=== PATIENT | male | born 1985 | race African-American/Black ===

== ENCOUNTER 2018-02-22 11:42 | Emergency (ER) | payer SELFPAY ==
[2018-02-22 14:02] LABS: Urine Blood NEGATIVE (NEG); Urine Glucose NEGATIVE (NEG); Urine Protein NEGATIVE (NEG); Urine Specific Gravity 1.015 (1.005-1.030); Urine pH 6.5 (5.0-7.0)
[2018-02-22] MEDS ORDERED: CEFTRIAXONE 250 MG/VIAL ONE (14:09)
[2018-02-22] MEDS ORDERED: AZITHROMYCIN 250 MG TAB ONE (14:09)
[2018-02-22] MEDS ORDERED: WATER FOR INJ,STERILE 10 ML ONE (14:09)
--- NOTE | 2018-02-22 14:11 | ER ---
Nurse's Notes [facility] Name: Tanisha Hahn Age: 33 yrs Sex: Male : 1985 Arrival Date: 02/22/2018 Time: 11:45 Bed 18 Private MD: None, None Diagnosis: Suspected STD;Flu like illness Presentation: 02/22 11:49 Presenting complaint: Patient states: pt c/o peeing blood since for two months now, sg decided to find out why, reports sore throat that hurts on the left side most, reports having fever intermittent, would like to get tested for everthing. Transition of care: patient was not received from another setting of care. Onset of symptoms was February 22, 2018. Risk Assessment: Do you want to hurt yourself or someone else? Patient reports no desire to harm self or others. Initial Sepsis Screen: Does the patient meet any 2 criteria? No. Patient's initial sepsis screen is negative. Does the patient have a suspected source of infection? No. Patient's initial sepsis screen is negative. Care prior to arrival: None. 11:49 Method Of Arrival: Ambulatory 11:49 Acuity: JONO 3 sg Historical: - Allergies: 11:51 No Known Allergies; sg - Home Meds: 11:51 None [Active]; sg - PMHx: 11:51 None; sg - PSHx: 11:51 Appendectomy; sg - Immunization history:: Adult Immunizations not up to date. - Social history:: Smoking status: Patient uses tobacco products, smokes one-half pack cigarettes per day. - Ebola Screening: : Patient negative for fever greater than or equal to 101.5 degrees Fahrenheit, and additional compatible Ebola Virus Disease symptoms Patient denies exposure to infectious person Patient denies travel to an Ebola-affected area in the 21 days before illness onset No symptoms or risks identified at this time. Screenin:13 Abuse screen: Denies threats or abuse. Denies injuries from another. Nutritional jl7 screening: No deficits noted. Tuberculosis screening: No symptoms or risk factors identified. Fall Risk None identified. Assessment: 13:13 General: Appears in no apparent distress. uncomfortable, Behavior is calm, cooperative, jl7 appropriate for age. Pain: Complains of pain in sore throat Pain does not radiate. Pain currently is 8 out of 10 on a pain scale. Neuro: Level of Consciousness is awake, alert, obeys commands, Oriented to person, place, time, situation. Cardiovascular: Heart tones S1 S2 present Patient's skin is warm and dry. Respiratory: Airway is patent Respiratory effort is even, unlabored, Respiratory pattern is regular, symmetrical, Breath sounds are clear bilaterally. GI: No signs and/or symptoms were reported involving the gastrointestinal system. : No signs and/or symptoms were reported regarding the genitourinary system. EENT: Throat is clear is reddened. Derm: Skin is pink, warm \T\ dry. Musculoskeletal: No signs and/or symptoms reported regarding the musculoskeletal system. 14:15 Reassessment: Patient appears in no apparent distress at this time. No changes from jl7 previously documented assessment. Patient and/or family updated on plan of care and expected duration. Pain level reassessed. Patient is alert, oriented x 3, equal unlabored respirations, skin warm/dry/pink. Vital Signs: 11:50 BP 148 / 103; Pulse 87; Resp 17; Temp 98.3; Pulse Ox 98% on R/A; Height 5 ft. 4 in. sg (162.56 cm); Pain 8/10; 14:37 BP 145 / 89; Pulse 85; Resp 16 S; Pulse Ox 99% on R/A; jl7 ED Course: 11:45 Patient arrived in ED. mr 11:46 None, None is Private Physician. mr 11:50 Triage completed. sg 11:52 Arm band placed on. sg 12:42 Horace Stark MD is Attending Physician. ps1 12:45 Urine collected: Strep swab sent to lab. jl7 12:48 Grady Kate RN is Primary Nurse. jl7 13:13 Patient has correct armband on for positive identification. Placed in gown. Bed in low jl7 position. Call light in reach. Side rails up X 1. Pulse ox on. NIBP on. Warm blanket given. 14:15 No provider procedures requiring assistance completed. jl7 14:36 Throat Culture Sent. jl7 14:38 Patient did not have IV access during this emergency room visit. jl7 Administered Medications: 14:08 Drug: Rocephin (cefTRIAXone) 250 mg Route: IM; Site: right deltoid; jl7 14:36 Follow up: Response: No adverse reaction jl7 14:09 Drug: AZITHromycin 1 grams Route: PO; jl7 14:36 Follow up: Response: No adverse reaction jl7 Outcome: 14:10 Discharge ordered by . ps1 14:38 Discharged to home ambulatory. jl7 14:38 Condition: stable 14:38 Discharge instructions given to patient, Instructed on discharge instructions, follow up and referral plans. safe sex practices, Demonstrated understanding of instructions, follow-up care. 14:38 Patient left the ED. jl7 Signatures: Thierno Bucio RN RN Jayna Diego Jahala, RN RN jlHorace Ware MD MD ps1 Corrections: (The following items were deleted from the chart) 14:38 14:15 Patient did not have IV access during this emergency room visit. jl7 jl7
--- NOTE | 2018-02-22 14:11 | EDPHYS ---
Physician Documentation [facility] Name: Tanisha Hahn Age: 33 yrs Sex: Male : 1985 Arrival Date: 02/22/2018 Time: 11:45 Bed 18 Private MD: None, None ED Physician Horace Stark HPI: 02/22 14:03 This 33 yrs old Black Male presents to ER via Ambulatory with complaints of Sore ps1 Throat, Urinary Problem. 14:03 patient with concern for STD and flu like symptoms presenting for evaluation. Patient ps1 states that he has had SILVA, fever, chills, sore throat, body aches for 3 days. Additionally he states that he is sexually active and started having dysuria and hematuria. Which has since resolved. . Historical: - Allergies: 11:51 No Known Allergies; sg - Home Meds: 11:51 None [Active]; sg - PMHx: 11:51 None; sg - PSHx: 11:51 Appendectomy; sg - Immunization history:: Adult Immunizations not up to date. - Social history:: Smoking status: Patient uses tobacco products, smokes one-half pack cigarettes per day. - Ebola Screening: : Patient negative for fever greater than or equal to 101.5 degrees Fahrenheit, and additional compatible Ebola Virus Disease symptoms Patient denies exposure to infectious person Patient denies travel to an Ebola-affected area in the 21 days before illness onset No symptoms or risks identified at this time. ROS: 14:03 Eyes: Negative for injury, pain, redness, and discharge, ENT: Negative for injury, ps1 pain, and discharge, Cardiovascular: Negative for chest pain, palpitations, and edema, Respiratory: Negative for shortness of breath, cough, wheezing, and pleuritic chest pain, Abdomen/GI: Negative for abdominal pain, nausea, vomiting, diarrhea, and constipation, MS/Extremity: Negative for injury and deformity, Skin: Negative for injury, rash, and discoloration, Neuro: Negative for headache, weakness, numbness, tingling, and seizure, Psych: Negative for depression, anxiety, suicide ideation, homicidal ideation, and hallucinations. 14:03 Constitutional: Positive for body aches, chills, fatigue, fever. 14:03 : Positive for urinary symptoms, hematuria, burning with urination. Exam: 14:03 Constitutional: This is a well developed, well nourished patient who is awake, alert, ps1 and in no acute distress. Head/Face: Normocephalic, atraumatic. Eyes: Pupils equal round and reactive to light, extra-ocular motions intact. Lids and lashes normal. Conjunctiva and sclera are non-icteric and not injected. Chest/axilla: Normal chest wall appearance and motion. Nontender with no deformity. No lesions are appreciated. Cardiovascular: Regular rate and rhythm. No gallops, murmurs, or rubs. Normal PMI, no JVD. No pulse deficits. Respiratory: Lungs have equal breath sounds bilaterally, clear to auscultation and percussion. No rales, rhonchi or wheezes noted. No increased work of breathing, no retractions or nasal flaring. Abdomen/GI: Soft, non-tender, with normal bowel sounds. No distension or tympany. No guarding or rebound. No evidence of tenderness throughout. Male : Normal genitalia with no discharge or lesions. Vital Signs: 11:50 BP 148 / 103; Pulse 87; Resp 17; Temp 98.3; Pulse Ox 98% on R/A; Height 5 ft. 4 in. sg (162.56 cm); Pain 8/10; 14:37 BP 145 / 89; Pulse 85; Resp 16 S; Pulse Ox 99% on R/A; jl7 MDM: 14:10 Patient medically screened. ps1 14:10 Data reviewed: vital signs, nurses notes. [facility] 02/22 11:54 Order name: Strep; Complete Time: 12:55 02/22 14:11 Interpretation: Abnormal. [facility] 02/22 12:22 Order name: Throat Culture [facility] 02/22 12:27 Order name: Urine Dipstick--Ancillary (enter results); Complete Time: 14:11 sg Administered Medications: 14:08 Drug: Rocephin (cefTRIAXone) 250 mg Route: IM; Site: right deltoid; jl7 14:36 Follow up: Response: No adverse reaction jl7 14:09 Drug: AZITHromycin 1 grams Route: PO; jl7 14:36 Follow up: Response: No adverse reaction jl7 Disposition: 02/22/18 14:10 Discharged to Home. Impression: Suspected STD, Flu like illness. - Condition is Stable. - Discharge Instructions: Sexually Transmitted Disease, [id number]. - Medication Reconciliation Form, Thank You Letter, Antibiotic Education, Prescription Opioid Use form. - Follow up: Private Physician; When: As needed; Reason: Recheck today's complaints, Continuance of care, Re-evaluation by your physician. Follow up: Emergency Department; When: As needed; Reason: Fever > 102 F, Worsening of condition. - Problem is new. - Symptoms are unchanged. Signatures: Dispatcher [employer] EDMS Thierno Bucio RN RN sg Grady Kate RN RN jl7 Horace Stark MD MD ps1 Corrections: (The following items were deleted from the chart) 14:38 14:10 02/22/2018 14:10 Discharged to Home. Impression: Suspected STD; Flu like illness. jl7 Condition is Stable. Forms are Medication Reconciliation Form, Thank You Letter, Antibiotic Education, Prescription Opioid Use. Follow up: Private Physician; When: As needed; Reason: Recheck today's complaints, Continuance of care, Re-evaluation by your physician. Follow up: Emergency Department; When: As needed; Reason: Fever > 102 F, Worsening of condition. Problem is new. Symptoms are unchanged. ps1
[2018-02-25 11:46] LABS: C.trachomatis RNA,TMA Not Detected (Not Detected)
== END 2018-02-22 14:38 | disposition home or self-care (01) ==
LOC: ER 11:42
DX: J11.1 Influenza due to unidentified influenza virus with other respiratory manifestations (principal); Z20.2 Contact with and (suspected) exposure to infections with a predominantly sexual mode of transmission; F17.210 Nicotine dependence, cigarettes, uncomplicated
CPT/HCPCS: 81003; 87070; 87081; 87490; 87590; 96372; 99283; J0696

== ENCOUNTER 2018-02-25 09:18 | Emergency (ER) | payer SELFPAY ==
[2018-02-25] MEDS ORDERED: PANTOPRAZOLE 40 MG INJ ONE (10:13)
[2018-02-25] MEDS ORDERED: MEPERIDINE HCL 25 MG/0.5 ML ONE (10:50)
[2018-02-25] MEDS ORDERED: ONDANSETRON 4 MG/2 ML VIAL ONE ×2 (10:50→11:14)
[2018-02-25] MEDS ORDERED: DEXAMETHASONE 10 MG/ML VIAL ONE (11:13)
[2018-02-25] MEDS ORDERED: MORPHINE 4 MG/ML SYR ONE (11:14)
[2018-02-25] MEDS ORDERED: KETOROLAC 30 MG/ML INJ ONE (11:14)
[2018-02-25 11:30] LABS: Albumin 3.6 g/dL (3.4-5.0); Bilirubin Total 0.6 mg/dL (0.2-1.0); Potassium 3.9 mmol/L (3.5-5.1); Protein, Total 8.5 g/dL (6.4-8.2)
--- NOTE | 2018-02-25 12:14 | RAD REPORT ---
EXAM DESCRIPTION: CT - Soft Tissue Neck W/Contr - 02/25/2018 11:52 am CLINICAL HISTORY: Sore throat, difficulty talking, pain and fever TECHNIQUE: During dynamic enhancement using 100 milliliters nonionic IV contrast, axial 5 millimeter thick images of the neck were obtained. All CT scans are performed using dose optimization technique as appropriate and may include automated exposure control or mA/KV adjustment according to patient size. FINDINGS: Intracranial portion the examination is unremarkable. No globe or orbital content abnormal ity seen. Mastoid air cells and paranasal sinuses are clear. No vascular abnormality identified. The parotid, submandibular and thyroid gland tissues are unremarkable. No nasopharyngeal mass. There is a mild increased enhancement pattern along the mucosal surface. No r etropharyngeal abscess identified. Epiglottis is normal. No significant soft palate abnormality ident ifiable. No vocal cord abnormality. Minimal asymmetry or nodularity along the left side at the tongue base. This continues into the inferior margin of the left tonsil. Both tonsils are enlarged and show heterogeneous enhancement. There are several small punctate rounded low-density areas in the right t onsil. At the superior margin of the left tonsil with the soft palate there is a 14 millimeter rounde d area of diminished attenuation. In the midportion of the left tonsil there is an additional low-den sity area 12 mm in size. Additional very small rounded hypodense areas are present throughout the lef t tonsil. Bilateral enlarged enhancing reactive cervical lymph nodes are present. Largest is 19 mm along the po sterior margin of the left submandibular gland. No necrotic or abscessed lymph node. IMPRESSION: Bilateral tonsillitis findings with evidence for sixth peritonsillar abscess in the supe rior and midportion of the left tonsil. Both tonsils show numerous small rounded hypoechoic areas elizabet t could be additional small microabscesses. No epiglottis involvement. Vocal cords are unremarkable. Bilateral reactive cervical lymphadenopathy.
[2018-02-25] MEDS ORDERED: PIPER/TAZO/NS 3.375gm 3.375 GM/100 ML BAG ONE (13:05)
--- NOTE | 2018-02-25 13:41 | ER ---
Nurse's Notes [facility] Name: Tanisha Hahn Age: 33 yrs Sex: Male : 1985 Arrival Date: 02/25/2018 Time: 09:21 Bed 12 Private MD: Diagnosis: Peritonsillar abscess Presentation: 02/25 09:41 Presenting complaint: Patient states: sore throat, feels dizzy, can't talk, pain X 1 iw week, headache behind left eye, +fever. Transition of care: patient was not received from another setting of care. Onset of symptoms was February 22, 2018. Risk Assessment: Do you want to hurt yourself or someone else? Patient reports no desire to harm self or others. Initial Sepsis Screen: Does the patient meet any 2 criteria? No. Patient's initial sepsis screen is negative. Does the patient have a suspected source of infection? No. Patient's initial sepsis screen is negative. Care prior to arrival: None. 09:41 Method Of Arrival: Ambulatory iw 09:41 Acuity: JONO 3 iw Triage Assessment: 13:46 General: Appears in no apparent distress. Behavior is calm, cooperative. iw 13:47 Pain: Denies pain. iw Historical: - Allergies: 09:43 No Known Allergies; iw - Home Meds: 09:43 None [Active]; iw - PMHx: 09:43 None; iw - PSHx: 09:43 Appendectomy; iw - Immunization history:: Adult Immunizations up to date. - Social history:: Smoking status: Patient uses tobacco products, smokes two packs cigarettes per day. - Ebola Screening: : Patient negative for fever greater than or equal to 101.5 degrees Fahrenheit, and additional compatible Ebola Virus Disease symptoms Patient denies exposure to infectious person Patient denies travel to an Ebola-affected area in the 21 days before illness onset No symptoms or risks identified at this time. Screenin:07 Abuse screen: Denies threats or abuse. Denies injuries from another. Nutritional iw screening: Difficulty chewing/swallowing? Yes. Tuberculosis screening: No symptoms or risk factors identified. Fall Risk IV access (20 points). Assessment: 13:07 Reassessment: Patient appears in no apparent distress at this time. Patient and/or iw family updated on plan of care and expected duration. Pain level reassessed. Patient is alert, oriented x 3, equal unlabored respirations, skin warm/dry/pink. Patient denies pain at this time. Patient states symptoms have improved. Vital Signs: 09:44 BP 132 / 81; Pulse 98; Resp 16; Temp 99.2; Pulse Ox 100% ; Weight 72.57 kg; Height 5 iw ft. 4 in. (162.56 cm); Pain 10/10; 13:07 BP 104 / 62; Pulse 75; Resp 18 S; Temp 98.2(O); Pulse Ox 98% on R/A; Pain 0/10; iw 09:44 Body Mass Index 27.46 (72.57 kg, 162.56 cm) iw ED Course: 09:21 Patient arrived in ED. rg4 09:43 Triage completed. iw 09:44 Arm band placed on. iw 10:00 Patient has correct armband on for positive identification. iw 10:17 Ronaldo Shaikh PA is PHCP. [facility] 10:17 Dennis Sesay MD is Attending Physician. [facility] 10:46 Moon Crabtree RN is Primary Nurse. iw 10:47 Radiology exam delayed due to lab results not completed at this time. (BUN/Creatinine). vm2 10:55 Initial lab(s) drawn, by me, sent to lab. Inserted saline lock: 20 gauge in right sv antecubital area, using aseptic technique. Blood collected. Flushed right antecubital with 5 ml normal saline. 10:56 Radiology exam delayed due to lab results not completed at this time. (BUN/Creatinine). vm2 10:56 Throat Culture Sent. iw 11:30 initiated a transfer with Reena at the [facility]. eb 11:50 Patient moved to [place] via wheelchair. em2 11:52 CT completed. Patient tolerated procedure well. Patient moved back from HI. em2 11:53 CT Soft Tissue Neck W/contr In Process Unspecified. EDMS 13:20 pt declined at [facility] due to being at capacity. eb 13:25 initiated transfer with Charleen from the [facility]. eb 13:29 connected the ENT bail bonding agent from [facility] for patient transfer center. eb 13:32 administrative approval given by Charleen Steele RN Transfer Coord/ Pt going to the ER/ Dr. jazmyn Mcguire accepted the patient in transfer/ Report to be called to [phone]. 13:47 No provider procedures requiring assistance completed. Patient did not have IV access iw during this emergency room visit. Administered Medications: 11:08 Drug: Zofran 4 mg Route: IVP; Site: right antecubital; iw 11:10 Drug: morphine 2 mg Route: IVP; Site: right antecubital; iw 11:10 Drug: Ketorolac 30 mg Route: IVP; Site: right antecubital; iw 11:12 Drug: Decadron - Dexamethasone 10 mg Route: IVP; Site: right antecubital; iw 13:06 Drug: Zosyn 3.375 grams Route: IVPB; Infused Over: 60 mins; Site: right antecubital; iw Outcome: 13:39 ER care complete, transfer ordered by . bela 13:46 Transferred by ground EMS to [facility], Transfer form completed. X-rays sent iw w/ patient. Note: report given to MINGO Green 13:46 Condition: good 13:46 Instructed on the need for admit. 14:18 Patient left the ED. iw Signatures: Dispatcher [employer] EDMS Dayan Patel RN MINGO Ronaldo Shaikh PA PA jmm Williams, Irene, RN RN Sean Jarrett Rubi rg4 McGuire, Victoria vm2 Botello, Elizabeth Corrections: (The following items were deleted from the chart) 10:46 09:41 Acuity: JONO 4 [facility] 13:30 13:29 initiated transfer with Charleen from the [facility] 13:36 13:34 administrative approval given by Charleen Steele RN Transfer Coord/ Pt going to the ER/ Dr. Mcguire accepted the patient in transfer/ Report to be called to [phone]
--- NOTE | 2018-02-25 13:41 | EDPHYS ---
Physician Documentation [facility] Name: Tanisha Hahn Age: 33 yrs Sex: Male : 1985 Arrival Date: 02/25/2018 Time: 09:21 Bed 12 Private MD: ED Physician Dennis Sesay HPI: 02/25 10:47 This 33 yrs old Black Male presents to ER via Ambulatory with complaints of Throat jmm Swelling, Fever. 10:47 The patient presents with sore throat. Onset: The symptoms/episode began/occurred jmm gradually, 1 week(s) ago. Associated signs and symptoms: Pertinent positives: chills, fever, headache. This is a 33 year old male with no chronic medical conditions that presents to the ED with sore throat, SILVA, fever beginning 1 week ago. Patient was evaluated 3 days ago with concerns for an STD. Patient states administered antibiotics have not helped alleviate symptoms. . Historical: - Allergies: 09:43 No Known Allergies; iw - Home Meds: 09:43 None [Active]; iw - PMHx: 09:43 None; iw - PSHx: 09:43 Appendectomy; iw - Immunization history:: Adult Immunizations up to date. - Social history:: Smoking status: Patient uses tobacco products, smokes two packs cigarettes per day. - Ebola Screening: : Patient negative for fever greater than or equal to 101.5 degrees Fahrenheit, and additional compatible Ebola Virus Disease symptoms Patient denies exposure to infectious person Patient denies travel to an Ebola-affected area in the 21 days before illness onset No symptoms or risks identified at this time. ROS: 10:47 Eyes: Negative for injury, pain, redness, and discharge. jmm 10:47 Neck: Negative for injury, pain, and swelling, Cardiovascular: Negative for chest pain, palpitations, and edema, Respiratory: Negative for shortness of breath, cough, wheezing, and pleuritic chest pain, Abdomen/GI: Negative for abdominal pain, nausea, vomiting, diarrhea, and constipation. 10:47 Constitutional: Positive for body aches, chills, fever. 10:47 ENT: Positive for sore throat. 10:47 Neuro: Positive for headache. 10:47 All other systems are negative. Exam: 10:47 Constitutional: This is a well developed, well nourished patient who is awake, alert, jmm and in no acute distress. Head/Face: atraumatic. 10:47 Neck: Trachea midline, Supple Chest/axilla: Normal chest wall appearance and motion. Cardiovascular: Regular rate and rhythm. No edema appreciated Respiratory: Normal respirations, no respiratory distress appreciated Abdomen/GI: Non distended, soft Back: Normal ROM Skin: General appearance color normal MS/ Extremity: Moves all extremities, no obvious deformities appreciated, no edema noted to the lower extremities Neuro: Awake and alert, normal gait 10:47 ENT: Posterior pharynx: swelling, erythema. 10:47 Psych: Behavior/mood is pleasant, cooperative, anxious. Vital Signs: 09:44 BP 132 / 81; Pulse 98; Resp 16; Temp 99.2; Pulse Ox 100% ; Weight 72.57 kg; Height 5 iw ft. 4 in. (162.56 cm); Pain 10/10; 13:07 BP 104 / 62; Pulse 75; Resp 18 S; Temp 98.2(O); Pulse Ox 98% on R/A; Pain 0/10; iw 09:44 Body Mass Index 27.46 (72.57 kg, 162.56 cm) iw MDM: 10:34 Patient medically screened. [facility] 13:36 Data reviewed: vital signs, nurses notes. Counseling: I had a detailed discussion with [facility] the patient and/or guardian regarding: the historical points, exam findings, and any diagnostic results supporting the discharge/admit diagnosis, lab results, radiology results, the need to transfer to another facility. ED course: i discussed the patient with Dr. Ward whom accepted ER to ER transfer. . 02/25 09:29 Order name: Strep; Complete Time: 11:32 snw 02/25 10:41 Order name: CBC with Diff [facility] 02/25 10:41 Order name: CMP; Complete Time: 11:32 [facility] 02/25 10:41 Order name: CT Soft Tissue Neck W/contr [facility] 02/25 10:54 Order name: Throat Culture [facility] 02/25 10:41 Order name: Saline Lock; Complete Time: 11:00 [facility] Administered Medications: 11:08 Drug: Zofran 4 mg Route: IVP; Site: right antecubital; iw 11:10 Drug: morphine 2 mg Route: IVP; Site: right antecubital; iw 11:10 Drug: Ketorolac 30 mg Route: IVP; Site: right antecubital; iw 11:12 Drug: Decadron - Dexamethasone 10 mg Route: IVP; Site: right antecubital; iw 13:06 Drug: Zosyn 3.375 grams Route: IVPB; Infused Over: 60 mins; Site: right antecubital; iw Disposition: 14:32 Co-signature as Attending Physician, Dennis Sesay MD. rn Disposition: 02/25/18 13:39 Transfer ordered to [facility]. Diagnosis is Peritonsillar abscess. - Reason for transfer: Higher level of care. - Accepting physician is Prader. - Condition is Stable. - Problem is new. - Symptoms have improved. Signatures: Dispatcher [employer] EDRonaldo Gaxiola PA PA jmm Williams, Irene, RN RN iw Dennis Sesay MD MD returned goods inspector: (The following items were deleted from the chart) 14:18 13:39 02/25/2018 13:39 Transfer ordered to [facility]. iw Diagnosis is Peritonsillar abscess. Reason for transfer: Higher level of care. Accepting physician is Prader. Condition is Stable. Problem is new. Symptoms have improved. bela
== END 2018-02-25 14:18 | disposition short-term general hospital (02) ==
LOC: ER 09:18
DX: J36 Peritonsillar abscess (principal); F17.210 Nicotine dependence, cigarettes, uncomplicated
CPT/HCPCS: 36415; 70491; 80053; 85025; 87070; 87081; C9113; J1100; J2175; J2405; J2543; Q9967

== ENCOUNTER 2019-11-05 09:43 | Emergency (ER) | payer SELFPAY ==
[2019-11-05] MEDS ORDERED: PEN G BENZ LA 1.2MU/2ML SYRINGE IM ONE (10:21)
[2019-11-05] MEDS ORDERED: METHYLPREDNISOLONE 125 MG INJ ONE (10:29)
[2019-11-05] MEDS ORDERED: IBUPROFEN 400 MG TAB ONE ×2 (10:41→10:44)
--- NOTE | 2019-11-05 11:22 | ER ---
Nurse's Notes [facility] Name: Tanisha Hahn Age: 34 yrs Sex: Male : 1985 Arrival Date: 11/05/2019 Time: 09:46 Bed 13 Private MD: Diagnosis: Acute pharyngitis Presentation: 11/04 09:56 Chief complaint: Patient states: Sore throat for 1 week. History of peritonsillar ll1 abscess, states it feels similar. Reports tongue being white also. No fever at home. Coronavirus screen: Client denies travel out of the [place] in the last 14 days. At this time, the client does not indicate any symptoms associated with coronavirus-19. Ebola Screen: Patient denies travel to an Ebola-affected area in the 21 days before illness onset. Initial Sepsis Screen: Does the patient meet any 2 criteria? No. Patient's initial sepsis screen is negative. Risk Assessment: Do you want to hurt yourself or someone else? Patient reports no desire to harm self or others. Onset of symptoms was October 29, 2019. 09:56 Method Of Arrival: Ambulatory 1 09:56 Acuity: JONO 3 ll1 10:01 Initial Sepsis Screen: Does the patient have a suspected source of infection? Yes: ll1 Other: sore throat. Triage Assessment: 10:00 General: Appears uncomfortable, Behavior is calm, cooperative. Pain: Complains of pain ll1 in throat Pain currently is 7 out of 10 on a pain scale. Quality of pain is described as aching, Pain began 1 week. EENT: Oral mucosa is moist. Throat is reddened has patchy exudate Reports sore throat. Neuro: Level of Consciousness is awake, alert, obeys commands, Oriented to person, place, time, situation, Appropriate for age Footwear Sales Coordinator are equal bilaterally Moves all extremities. Full function Gait is steady, Speech is normal, Facial symmetry appears normal, Reports headache. Cardiovascular: No deficits noted. Respiratory: No deficits noted. Historical: - Allergies: :58 No Known Allergies; ll1 - PSHx: :58 Appendectomy; ll1 - Immunization history:: Flu vaccine is not up to date. - Social history:: Smoking status: Patient reports the use of cigarette tobacco products, smokes one pack cigarettes per day. Screenin:00 Abuse screen: Denies threats or abuse. Nutritional screening: No deficits noted. ll1 Tuberculosis screening: No symptoms or risk factors identified. Fall Risk None identified. Total Amaro Fall Scale indicates No Risk (0-24 pts). Assessment: 10:34 Reassessment: No changes from previously documented assessment. Patient and/or family ll1 updated on plan of care and expected duration. Pain level reassessed. Patient is alert, oriented x 3, equal unlabored respirations, skin warm/dry/pink. 11:26 Reassessment: Patient and/or family updated on plan of care and expected duration. Pain ll1 level reassessed. Patient is alert, oriented x 3, equal unlabored respirations, skin warm/dry/pink. Patient states feeling better. Vital Signs: 09:56 BP 132 / 88; Pulse 88; Resp 17; Temp 99.3; Pulse Ox 100% ; Pain 7/10; ll1 11:25 BP 140 / 81; Pulse 79; Resp 17; Temp 99.1; Pulse Ox 100% ; Pain 0/10; ll1 ED Course: 09:46 Patient arrived in ED. mr 09:53 Chris Mac, MONEY EXAMINER is PHCP. pm1 09:53 Cassius Gerard MD is Attending Physician. pm1 09:56 Nannette Pete, MIGNO is Primary Nurse. ll1 09:58 Triage completed. ll1 09:59 Arm band placed on Patient placed in an exam room, on a stretcher. ll1 10:01 Patient has correct armband on for positive identification. Bed in low position. Call ll1 light in reach. Side rails up X 1. Cardiac monitoring not applicable on this patient. 10:11 Strep Sent. ll1 11:25 No provider procedures requiring assistance completed. Patient did not have IV access ll1 during this emergency room visit. Administered Medications: 10:16 Not Given (on back order): Decadron 10 mg IM once pm1 10:24 Drug: Bicillin L-A 1.2 million units Route: IM; Site: left gluteus; ll1 11:27 Follow up: Response: No adverse reaction; RASS: Alert and Calm (0) ll1 10:24 Drug: SOLU-Medrol 125 mg Route: IM; Site: right gluteus; ll1 11:27 Follow up: Response: No adverse reaction; RASS: Alert and Calm (0) ll1 10:33 Drug: Ibuprofen 800 mg Route: PO; ll1 11:30 Follow up: Response: No adverse reaction; Pain is decreased; RASS: Alert and Calm (0) ll1 Outcome: 11:20 Discharge ordered by . pm1 11:26 Discharged to home ambulatory. ll1 11:26 Condition: stable 11:26 Discharge instructions given to patient, Instructed on discharge instructions, follow up and referral plans. medication usage, Demonstrated understanding of instructions, follow-up care, medications, Prescriptions given X 1. 11:27 Patient left the ED. iw Signatures: Jayna Diego Irene, RN RN iw Chris Mac NP MONEY EXAMINER pm1 Nannette Pete RN RN ll1 Corrections: (The following items were deleted from the chart) 09:59 09:56 Chief complaint: Patient states: Sore throat, (possible abscess) for 1 week. ll1 States he fells like it popped, drains white fluid. Reports tongue being white also. No fever at home. ll1
--- NOTE | 2019-11-05 11:22 | EDPHYS ---
Physician Documentation [facility] Name: Tanisha Hahn Age: 34 yrs Sex: Male : 1985 Arrival Date: 11/05/2019 Time: 09:46 Bed 13 Private MD: ED Physician Cassius Gerard HPI: 11/04 10:06 This 34 yrs old Black Male presents to ER via Ambulatory with complaints of Sore throat.pm1 10:06 The patient presents with sore throat. The patient describes throat pain as raw, pm1 scratchy. Onset: The symptoms/episode began/occurred 1 week(s) ago. Severity of symptoms: in the emergency department the symptoms are actually worse. Modifying factors: The symptoms are alleviated by nothing, the symptoms are aggravated by foods, swallowing, Patient's oral intake status: good unaware of sick contact. Associated signs and symptoms: Pertinent negatives chills, cough, fever, nausea, vomiting. The patient has experienced a previous episode, patient concerned that he might have a peritonsillar abscess because it feels similar. The patient has not recently seen a physician. Historical: - Allergies: 09:58 No Known Allergies; ll1 - PSHx: :58 Appendectomy; ll1 - Immunization history:: Flu vaccine is not up to date. - Social history:: Smoking status: Patient reports the use of cigarette tobacco products, smokes one pack cigarettes per day. ROS: 10:06 Constitutional: Negative for fever, chills, and weight loss. pm1 10:06 Neck: Negative for injury, pain, and swelling, Cardiovascular: Negative for chest pain, palpitations, and edema, Respiratory: Negative for shortness of breath, cough, wheezing, and pleuritic chest pain, Abdomen/GI: Negative for abdominal pain, nausea, vomiting, diarrhea, and constipation, Back: Negative for injury and pain, MS/Extremity: Negative for injury and deformity, Skin: Negative for injury, rash, and discoloration. 10:06 Neuro: Negative for headache, weakness, numbness, tingling, and seizure. 10:06 ENT: Positive for sore throat, Negative for ear pain. Exam: 10:06 Constitutional: This is a well developed, well nourished patient who is awake, alert, pm1 and in no acute distress. Head/Face: Normocephalic, atraumatic. 10:06 Neck: Trachea midline, no thyromegaly or masses palpated, and no cervical lymphadenopathy. Supple, full range of motion without nuchal rigidity, or vertebral point tenderness. No Meningismus. 10:06 Skin: Warm, dry with normal turgor. Normal color with no rashes, no lesions, and no evidence of cellulitis. MS/ Extremity: Pulses equal, no cyanosis. Neurovascular intact. Full, normal range of motion. 10:06 ENT: Posterior pharynx: is normal, airway is patent, Tonsils: enlarged on the right, with erythema, with exudate, peritonsillar mass, is not appreciated, pooling of secretions, is not appreciated. 10:06 Cardiovascular: Exam negative for acute changes, Rate: normal, Rhythm: regular, Pulses: no pulse deficits are appreciated. 10:06 Respiratory: Exam negative for acute changes, respiratory distress, shortness of breath. 10:06 Neuro: Exam negative for acute changes, Orientation: is normal, Mentation: is normal, Motor: is normal, moves all fours. Vital Signs: 09:56 BP 132 / 88; Pulse 88; Resp 17; Temp 99.3; Pulse Ox 100% ; Pain 7/10; ll1 11:25 BP 140 / 81; Pulse 79; Resp 17; Temp 99.1; Pulse Ox 100% ; Pain 0/10; ll1 MDM: 09:53 Patient medically screened. pm1 11:20 Data reviewed: vital signs. Data interpreted: Pulse oximetry: on room air is 100 %. pm1 Interpretation: normal. Counseling: I had a detailed discussion with the patient and/or guardian regarding: the historical points, exam findings, and any diagnostic results supporting the discharge/admit diagnosis, the need for outpatient follow up, to return to the emergency department if symptoms worsen or persist or if there are any questions or concerns that arise at home. 11/04 10:04 Order name: Strep pm1 11/04 11:10 Order name: Group A Streptococcus Rapid Sc; Complete Time: 11:21 EDMS Administered Medications: 10:16 Not Given (on back order): Decadron 10 mg IM once pm1 10:24 Drug: Bicillin L-A 1.2 million units Route: IM; Site: left gluteus; ll1 11:27 Follow up: Response: No adverse reaction; RASS: Alert and Calm (0) ll1 10:24 Drug: SOLU-Medrol 125 mg Route: IM; Site: right gluteus; ll1 11:27 Follow up: Response: No adverse reaction; RASS: Alert and Calm (0) ll1 10:33 Drug: Ibuprofen 800 mg Route: PO; ll1 11:30 Follow up: Response: No adverse reaction; Pain is decreased; RASS: Alert and Calm (0) ll1 Disposition: 16:34 Co-signature as Attending Physician, Cassius Gerard MD I agree with the assessment and kdr plan of care. Disposition: 11/05/19 11:20 Discharged to Home. Impression: Acute pharyngitis. - Condition is Stable. - Discharge Instructions: Pharyngitis. - Prescriptions for Diclofenac Sodium 75 mg Oral Tablet Sustained Release - take 1 tablet by ORAL route 2 times per day; 30 tablet. - Medication Reconciliation Form, Thank You Letter, Antibiotic Education, Prescription Opioid Use, Work release form form. - Follow up: Emergency Department; When: As needed; Reason: Worsening of condition. Follow up: Private Physician; When: 2 - 3 days; Reason: Recheck today's complaints, Continuance of care, Re-evaluation by your physician. - Problem is new. - Symptoms have improved. Signatures: Dispatcher [employer] EDMS Cassius Gerard MD MD kdr Moon Crabtree RN RN iw Chris Mac, ROLLER PAINTER ROLLER PAINTER pm1 Nannette Pete RN RN ll1 Corrections: (The following items were deleted from the chart) 11: 11:20 11/05/2019 11:20 Discharged to Home. Impression: Acute pharyngitis. Condition is iw Stable. Forms are Work release form, Medication Reconciliation Form, Thank You Letter, Antibiotic Education, Prescription Opioid Use. Follow up: Emergency Department; When: As needed; Reason: Worsening of condition. Follow up: Private Physician; When: 2 - 3 days; Reason: Recheck today's complaints, Continuance of care, Re-evaluation by your physician. Problem is new. Symptoms have improved. pm1
[2019-11-05 11:33] VITALS: BP 132/88; TEMP 99.3; O2SAT 100
== END 2019-11-05 11:27 | disposition home or self-care (01) ==
LOC: ER 09:43
DX: J02.9 Acute pharyngitis, unspecified (principal); F17.210 Nicotine dependence, cigarettes, uncomplicated
CPT/HCPCS: 87070; 87081; 96372; 99283; J0561; J2930

== ENCOUNTER 2021-05-30 17:16 | Emergency (ER) | payer SELFPAY ==
--- NOTE | 2021-05-30 19:34 | RAD REPORT ---
EXAM DESCRIPTION: US - Scrotum Testicles - 05/30/2021 7:13 pm CLINICAL HISTORY: Testicular pain COMPARISON: None FINDINGS: Right testicle measures 4 x 2.2 x 2.8 centimeters. Echotexture is homogeneous. Normal bloo d flow Left testicle measures 4 x 2 x 3 centimeters. Echotexture is homogeneous. Normal blood flow The epididymides are normal in size and echotexture. Normal blood flow is seen. Right varicocele IMPRESSION: Right varicocele
[2021-05-30 19:57] LABS: Urine Blood Negative (Negative); Urine Glucose Negative (Negative); Urine Protein Negative (Negative); Urine Specific Gravity >=1.030 (1.005-1.030)
--- NOTE | 2021-05-30 20:24 | EDPHYS ---
Physician Documentation [facility] Name: Tanisha Hahn Age: 36 yrs Sex: Male : 1985 Arrival Date: 05/30/2021 Time: 17:17 Bed DIS2 Private MD: SOLIS Physician Jorge Malave HPI: 05/30 18:31 This 36 yrs old Black Male presents to ER via Ambulatory with complaints of Leg jmm Swelling. 18:31 The patient presents with scrotal pain. Onset: The symptoms/episode began/occurred jmm gradually, today. Modifying factors: The symptoms are alleviated by nothing, the symptoms are aggravated by nothing. This is a 36-year-old male with no chronic medical conditions presents emerged part with complaints of right-sided scrotal pain beginning earlier today which radiates into his abdomen. Denies vomiting or diarrhea. Denies fever.. Historical: - Allergies: 18:03 No Known Allergies; jb4 - Home Meds: 18:03 None [Active]; jb4 - PMHx: 18:03 None; jb4 - PSHx: 18:03 Appendectomy; jb4 - Immunization history:: Adult Immunizations not up to date. - Social history:: Smoking status: Patient reports the use of cigarette tobacco products, smokes one pack cigarettes per day. ROS: 18:31 Constitutional: Negative for fever, chills, and weight loss, Cardiovascular: Negative jmm for chest pain, palpitations, and edema, Respiratory: Negative for shortness of breath, cough, wheezing, and pleuritic chest pain. 18:31 Abdomen/GI: Positive for abdominal pain. 18:31 : Positive for testicular pain 18:31 All other systems are negative. Exam: 18:31 Constitutional: This is a well developed, well nourished patient who is awake, alert, jmm and in no acute distress. Head/Face: atraumatic. Eyes: EOMI, no conjunctival erythema appreciated ENT: Moist Mucus Membranes Neck: Trachea midline, Supple Chest/axilla: Normal chest wall appearance and motion. Cardiovascular: Regular rate and rhythm. No edema appreciated Respiratory: Normal respirations, no respiratory distress appreciated 18:31 Back: Normal ROM Skin: General appearance color normal MS/ Extremity: Moves all extremities, no obvious deformities appreciated, no edema noted to the lower extremities Neuro: Awake and alert Psych: Behavior is normal, Mood is normal, Patient is cooperative and pleasant 18:31 Abdomen/GI: Inspection: abdomen appears normal, Bowel sounds: normal, Palpation: soft, nontender, in all quadrants. 18:31 : Right epididymal tenderness on palpation. Vital Signs: 18:00 BP 116 / 80; Pulse 79; Resp 16; Temp 97.8(O); Pulse Ox 100% on R/A; Weight 77.11 kg jb4 (R); Height 5 ft. 5 in. (165.10 cm) (R); Pain 6/10; 18:00 Body Mass Index 28.29 (77.11 kg, 165.10 cm) jb4 MDM: 18:31 Patient medically screened. [facility] 20:21 Data reviewed: vital signs, nurses notes. Counseling: I had a detailed discussion with bela the patient and/or guardian regarding: the historical points, exam findings, and any diagnostic results supporting the discharge/admit diagnosis, lab results, radiology results, the need for outpatient follow up, to return to the emergency department if symptoms worsen or persist or if there are any questions or concerns that arise at home. ED course: Patient is alert nontoxic appearance in the ED. Will be covered with antibiotics and advised follow with neurology for further evaluation. I do not currently suspect appendicitis. Patient has had an appendectomy. Patient otherwise given strict return precautions for increased pain, vomiting, fever etc. Patient understood agrees plan of care.. 05/30 19:58 Order name: Urine Dipstick-Ancillary; Complete Time: 19:59 EDAL 05/30 18:31 Order name: US Scrotum Testicles; Complete Time: 19:36 [facility] 05/30 18:31 Order name: Urine Dipstick-Ancillary (obtain specimen); Complete Time: 20:14 [facility] Administered Medications: No medications were administered Disposition Summary: 05/30/21 20:24 Discharge Ordered Location: Home [facility] Condition: Stable mykel Diagnosis - Scrotal Pain mykel Followup: bela - With: Jung Mahoney MD - When: 2 - 3 days - Reason: Recheck today's complaints, Continuance of care, Re-evaluation by your physician Discharge Instructions: - Discharge Summary Sheet bela - Scrotal Swelling [facility] Forms: - Medication Reconciliation Form [facility] - Thank You Letter bela - Antibiotic Education jmm - Prescription Opioid Use [facility] Prescriptions: - Doxycycline Hyclate 100 mg Oral Tablet - take 1 tablet by ORAL route every 12 hours; 20 tablet; Refills: 0, Product [facility] Selection Permitted Signatures: Dispatcher [employer] Ronaldo Ramirez PA PA jmm Bryson, James, RN RN jb4
--- NOTE | 2021-05-30 20:24 | ER ---
Nurse's Notes [facility] Name: Tanisha Hahn Age: 36 yrs Sex: Male : 1985 Arrival Date: 05/30/2021 Time: 17:17 Bed DIS2 Private MD: Diagnosis: Scrotal Pain Presentation: 05/30 18:00 Chief complaint: Patient states: I started noticing testicular swelling on the right jb4 side that radiates up to my right lower abdomen and to my right lower back. Started 2 days ago. Coronavirus screen: At this time, the client does not indicate any symptoms associated with coronavirus-19. Ebola Screen: No symptoms or risks identified at this time. Initial Sepsis Screen: Does the patient meet any 2 criteria? No. Patient's initial sepsis screen is negative. Does the patient have a suspected source of infection? No. Patient's initial sepsis screen is negative. Risk Assessment: Do you want to hurt yourself or someone else? Patient reports no desire to harm self or others. Onset of symptoms was May 30, 2021. Transition of care: patient was not received from another setting of care. 18:00 Method Of Arrival: Ambulatory jb4 18:00 Acuity: JONO 3 jb4 Historical: - Allergies: 18:03 No Known Allergies; jb4 - Home Meds: 18:03 None [Active]; jb4 - PMHx: 18:03 None; jb4 - PSHx: 18:03 Appendectomy; jb4 - Immunization history:: Adult Immunizations not up to date. - Social history:: Smoking status: Patient reports the use of cigarette tobacco products, smokes one pack cigarettes per day. Screenin:00 Abuse screen: Denies threats or abuse. Nutritional screening: No deficits noted. jb4 Tuberculosis screening: No symptoms or risk factors identified. Fall Risk None identified. Assessment: 20:00 General: Appears in no apparent distress. uncomfortable, Behavior is calm, cooperative, jb4 appropriate for age. Pain: Complains of pain in right testicle Pain does not radiate. Pain radiates to right low back and right lower quadrant Pain currently is 8 out of 10 on a pain scale. Neuro: Level of Consciousness is awake, alert, obeys commands, Oriented to person, place, time, situation. Cardiovascular: Patient's skin is warm and dry. Respiratory: Airway is patent Respiratory effort is even, unlabored, Respiratory pattern is regular, symmetrical. GI: No signs and/or symptoms were reported involving the gastrointestinal system. : No signs and/or symptoms were reported regarding the genitourinary system. EENT: No signs and/or symptoms were reported regarding the EENT system. Derm: Skin is intact, Skin is dry, Skin is normal, Skin temperature is warm. Musculoskeletal: Circulation, motion, and sensation intact. Range of motion: intact in all extremities. Vital Signs: 18:00 BP 116 / 80; Pulse 79; Resp 16; Temp 97.8(O); Pulse Ox 100% on R/A; Weight 77.11 kg jb4 (R); Height 5 ft. 5 in. (165.10 cm) (R); Pain 6/10; 18:00 Body Mass Index 28.29 (77.11 kg, 165.10 cm) jb4 ED Course: 17:17 Patient arrived in ED. mr 17:33 Ronaldo Shaikh PA is PHCP. [facility] 17:33 Jorge Malave MD is Attending Physician. jm 18:03 Triage completed. jb4 18:03 Arm band placed on right wrist. jb4 19:15 US Scrotum Testicles In Process Unspecified. EDMS 20:00 Patient has correct armband on for positive identification. jb4 20:00 No provider procedures requiring assistance completed. Patient did not have IV access jb4 during this emergency room visit. 20:22 Jung Mahoney MD is Referral Physician. [facility] Administered Medications: No medications were administered Outcome: 20:24 Discharge ordered by . [facility] 20:30 Discharged to home ambulatory. jb4 20:30 Condition: stable 20:30 Discharge instructions given to patient, Instructed on discharge instructions, follow up and referral plans. medication usage, Demonstrated understanding of instructions, follow-up care, medications, Prescriptions given X 1. 20:43 Patient left the ED. jb4 Signatures: Dispatcher [employer] EDMS Ronaldo Shaikh PA PA jmm Rivera, Mary Robert Garcia, RN RN jb4
[2021-05-30 20:53] VITALS: BP 116/80; TEMP 97.8; O2SAT 100
== END 2021-05-30 20:43 | disposition home or self-care (01) ==
LOC: ER 17:16
DX: N50.82 Scrotal pain (principal); F17.210 Nicotine dependence, cigarettes, uncomplicated
CPT/HCPCS: 76870; 81003; 99283

== ENCOUNTER 2021-08-03 05:42 | Emergency (ER) | payer SELFPAY ==
[2021-08-03] MEDS ORDERED: CEPHALEXIN 250 MG CAP ONE (06:27)
[2021-08-03] MEDS ORDERED: TETANUS & DIPHTHERIA TOX,ADULT 0.5 ML VIAL ONE (06:27)
--- NOTE | 2021-08-03 06:40 | ER ---
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 Coronavirus screen: Vaccine status: Patient reports being unvaccinated. At this time, the client does not indicate any symptoms associated with coronavirus-19. Ebola Screen: No symptoms or risks identified at this time. Initial Sepsis Screen: Does the patient meet any 2 criteria? No. Patient's initial sepsis screen is negative. Does the patient have a suspected source of infection? No. Patient's initial sepsis screen is negative. Risk Assessment: Do you want to hurt yourself or someone else? Patient reports no desire to harm self or others. Onset of symptoms was August 02, 2021 at 19:00. 06:30 Acuity: JONO 4 vc1 06:30 Method Of Arrival: Ambulatory vc1 Triage Assessment: 06:00 General: Appears in no apparent distress. comfortable, Behavior is calm, cooperative, vc1 appropriate for age. Pain: Complains of pain in dorsal aspect of distal phalanx of left index finger Pain does not radiate. Pain currently is 0 out of 10 on a pain scale. EENT: No deficits noted. Neuro: Level of Consciousness is awake, alert, obeys commands, Oriented to person, place, time, Appropriate for age. Cardiovascular: No deficits noted. Respiratory: Airway is patent Respiratory effort is even, unlabored, Respiratory pattern is regular, symmetrical. GI: No deficits noted. : No deficits noted. Derm: Wound noted Other: lateral side of left index finger. Musculoskeletal: Range of motion: intact in DIP of left index finger. Injury Description: Avulsion sustained to dorsal aspect of distal phalanx of left index finger and palmar aspect of distal phalanx of left index finger. Historical: - Allergies: 06:00 No Known Allergies; vc1 - Home Meds: 06:00 None [Active]; vc1 - PMHx: 06:00 None; vc1 - PSHx: 06:00 Appendectomy; vc1 - Immunization history:: Adult Immunizations up to date, Client reports having NOT received the Covid vaccine. - Social history:: Smoking status: Patient reports the use of cigarette tobacco products, smokes one pack cigarettes per day. Screenin:00 Abuse screen: Denies threats or abuse. Nutritional screening: No deficits noted. vc1 Tuberculosis screening: No symptoms or risk factors identified. Fall Risk None identified. Assessment: 06:34 General: Appears in no apparent distress. comfortable, Behavior is calm, cooperative. lg3 Pain: Complains of pain in left index finger. Neuro: No deficits noted. Reeves Agitation-Sedation Scale (RASS): 0 - Alert and Calm Level of Consciousness is awake, alert, obeys commands, Oriented to person, place, time, situation. Cardiovascular: No deficits noted. Denies chest pain, shortness of breath, Capillary refill < 3 seconds Clubbing of nail beds is absent JVD is absent Patient's skin is warm and dry. Respiratory: No deficits noted. Airway is patent Trachea midline Respiratory effort is even, unlabored, Respiratory pattern is regular, symmetrical. GI: No deficits noted. No signs and/or symptoms were reported involving the gastrointestinal system. Abdomen is flat, non-distended. : No deficits noted. No signs and/or symptoms were reported regarding the genitourinary system. EENT: No deficits noted. No signs and/or symptoms were reported regarding the EENT system. Derm: Wound noted left index finger. Musculoskeletal: No deficits noted. Circulation, motion, and sensation intact. Range of motion: intact in all extremities. Injury Description: Laceration sustained to left index finger. Vital Signs: 06:30 BP 138 / 94; Pulse 82; Resp 18; Temp 98.0(O); Pulse Ox 100% on R/A; as6 06:30 Weight 72.57 kg; Height 5 ft. 5 in. (165.10 cm); Pain 0/10; vc1 06:30 Body Mass Index 26.63 (72.57 kg, 165.10 cm) vc1 ED Course: 05:45 Patient arrived in ED. bp1 06:00 Bed in low position. Pulse ox on. NIBP on. vc1 06:02 Osman Weaver MD is Attending Physician. mh7 06:16 Tessie James, RN is Primary Nurse. lg3 06:32 Triage completed. vc1 06:35 Arm band placed on right wrist. vc1 06:36 Wound care: located on left index finger was cleaned with Betadine, dressed with cling, vc1 Vaseline gauze, surgicell Patient tolerated well. 06:38 Bryan Méndez MD is Referral Physician. 7 06:47 No provider procedures requiring assistance completed. Patient did not have IV access as6 during this emergency room visit. 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 Exp: vc1 05/02/2023. Lot #: [id number]. } Route: IM; Site: left deltoid; 06:39 Follow up: Response: No adverse reaction lg3 06:27 Drug: KeFLEX (cephalexin) 500 mg Route: PO; vc1 06:39 Follow up: Response: No adverse reaction lg3 Medication: 06:28 Vaccine Information Statement (VIS) provided today. Questions and/or concerns vc1 addressed. VIS edition date: October 03, 2020. Outcome: 06:40 Discharge ordered by . 7 06:47 Discharged to home ambulatory. as6 06:47 Condition: stable 06:47 Discharge instructions given to patient, Instructed on discharge instructions, follow up and referral plans. medication usage, Demonstrated understanding of instructions, follow-up care, medications, Prescriptions given X 1. 06:47 Patient left the ED. as6 Signatures: Tessie James, RN RN lg3 Jocelyn Garcia Maurice, MD MD 7 Mario Miller RN RN as6 Sania Rachel RN RN vc1
--- NOTE | 2021-08-03 06:41 | EDPHYS ---
Physician Documentation [facility] Name: Tanisha Hahn Age: 36 yrs Sex: Male : 1985 Arrival Date: 08/03/2021 Time: 05:45 Bed 6 Private MD: ED Physician Osman Weaver HPI: 08/03 06:25 This 36 yrs old Black Male presents to ER via Unassigned with complaints of Finger mh7 Injury, Laceration. 06:25 The patient or guardian reports injury. The complaints affect the left index finger. mh7 Context: The problem was sustained at work, resulted from a penetrating injury, by a knife. Onset: The symptoms/episode began/occurred yesterday, at 19:00. Modifying factors: The symptoms are alleviated by nothing, the symptoms are aggravated by nothing. Associated signs and symptoms: Pertinent positives: bleeding, Pertinent negatives: cyanosis distally, decreased sensation distally, fever, nausea, numbness distally, tingling distally, vomiting. Severity of symptoms: At their worst the symptoms were moderate, last night, in the emergency department the symptoms are unchanged. 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 Historical: - Allergies: 06:00 No Known Allergies; vc1 - Home Meds: 06:00 None [Active]; vc1 - PMHx: 06:00 None; vc1 - PSHx: 06:00 Appendectomy; vc1 - Immunization history:: Adult Immunizations up to date, Client reports having NOT received the Covid vaccine. - Social history:: Smoking status: Patient reports the use of cigarette tobacco products, smokes one pack cigarettes per day. ROS: 06:25 Constitutional: Negative for fever, chills, and weight loss, Eyes: Negative for injury, mh7 pain, redness, and discharge, ENT: Negative for injury, pain, and discharge, Neck: Negative for injury, pain, and swelling, Cardiovascular: Negative for chest pain, palpitations, and edema, Respiratory: Negative for shortness of breath, cough, wheezing, and pleuritic chest pain, Abdomen/GI: Negative for abdominal pain, nausea, vomiting, diarrhea, and constipation, Back: Negative for injury and pain, : Negative for injury, bleeding, discharge, and swelling, Neuro: Negative for headache, weakness, numbness, tingling, and seizure, Psych: Negative for depression, anxiety, suicide ideation, homicidal ideation, and hallucinations, Allergy/Immunology: Negative for hives, rash, and allergies, Endocrine: Negative for neck swelling, polydipsia, polyuria, polyphagia, and marked weight changes, Hematologic/Lymphatic: Negative for swollen nodes, abnormal bleeding, and unusual bruising. Exam: 06:25 Constitutional: This is a well developed, well nourished patient who is awake, alert, mh7 and in no acute distress. Head/Face: Normocephalic, atraumatic. 06:25 Eyes: Pupils equal round and reactive to light, extra-ocular motions intact. Lids and lashes normal. Conjunctiva and sclera are non-icteric and not injected. Cornea within normal limits. Periorbital areas with no swelling, redness, or edema. Neck: Trachea midline, no thyromegaly or masses palpated, and no cervical lymphadenopathy. Supple, full range of motion without nuchal rigidity, or vertebral point tenderness. No Meningismus. Chest/axilla: Normal chest wall appearance and motion. Nontender with no deformity. No lesions are appreciated. Cardiovascular: Regular rate and rhythm with a normal S1 and S2. No gallops, murmurs, or rubs. Normal PMI, no JVD. No pulse deficits. Respiratory: Lungs have equal breath sounds bilaterally, clear to auscultation and percussion. No rales, rhonchi or wheezes noted. No increased work of breathing, no retractions or nasal flaring. Abdomen/GI: Soft, non-tender, with normal bowel sounds. No distension or tympany. No guarding or rebound. No evidence of tenderness throughout. Neuro: Awake and alert, GCS 15, oriented to person, place, time, and situation. Cranial nerves II-XII grossly intact. Motor strength 5/5 in all extremities. Sensory grossly intact. Cerebellar exam normal. Normal gait. Psych: Awake, alert, with orientation to person, place and time. Behavior, mood, and affect are within normal limits. 06:25 Musculoskeletal/extremity: Extremities: noted in the distal left index finger, medial aspect: skin avulsion, bleeding, ROM: intact in all extremities, Circulation is intact in all extremities. Sensation intact. Compartment Syndrome exam of affected extremity: is normal. no numbness, no tingling, no sensation deficit, no palor, no weak pulses, Joints: All joints appear normal with full range of motion. Weight bearing: able to fully bear weight, without difficulty, Tendon exam: specific tendon testing normal through active and passive range of motion 06:25 Skin: injury, avulsion(s), a small of the distal left index finger, mdial aspect. Vital Signs: 06:30 BP 138 / 94; Pulse 82; Resp 18; Temp 98.0(O); Pulse Ox 100% on R/A; as6 06:30 Weight 72.57 kg; Height 5 ft. 5 in. (165.10 cm); Pain 0/10; vc1 06:30 Body Mass Index 26.63 (72.57 kg, 165.10 cm) vc1 MDM: 06:33 Differential diagnosis: abrasion, laceration, skin avulsion. Data reviewed: vital [facility] signs, nurses notes. Data interpreted: Pulse oximetry: on room air is 100 %. Interpretation: normal. Counseling: I had a detailed discussion with the patient and/or guardian regarding: the historical points, exam findings, and any diagnostic results supporting the discharge/admit diagnosis, the presence of at least one elevated blood pressure reading (>120/80) during this emergency department visit, the need for outpatient follow up. Response to treatment: the patient's symptoms have markedly improved after treatment. ED course: Surgicel, Vaseline gauze dressing placed to to left index finger with hemostasis. NAD, VSS, NVI, no focal neurological deficits.. 06:40 Patient medically screened. 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 Exp: vc1 05/02/2023. Lot #: [id number]. } Route: IM; Site: left deltoid; 06:39 Follow up: Response: No adverse reaction lg3 06:27 Drug: KeFLEX (cephalexin) 500 mg Route: PO; vc1 06:39 Follow up: Response: No adverse reaction lg3 Disposition Summary: 08/03/21 06:40 Discharge Ordered Location: Home [facility] Problem: new [facility] Symptoms: have improved [facility] Condition: Stable [facility] Diagnosis - Skin avulsion left index finger [facility] Followup: [facility] - With: Private Physician - When: 1 - 2 days - Reason: Worsening of condition, Recheck today's complaints, Continuance of care, Re-evaluation by your physician Followup: [facility] - With: Bryan Méndez MD - When: 2 - 3 days - Reason: Worsening of condition, Recheck today's complaints Followup: [facility] - With: Emergency Department - When: 1 - 2 days - Reason: Wound Recheck, Worsening of condition, Recheck today's complaints Discharge Instructions: - Discharge Summary Sheet [facility] - Deep Skin Avulsion [facility] - Form - Excuse from Work, School, or Physical Activity [facility] Forms: - Medication Reconciliation Form [facility] - Thank You Letter [facility] - Antibiotic Education [facility] - Prescription Opioid Use [facility] Prescriptions: - Cephalexin 500 mg Oral Capsule - take 1 capsule by ORAL route every 8 hours for 7 days; 21 capsule; Refills: 0, mh7 Product Selection Permitted Signatures: Osman Weaver MD MD [facility] Sania Rachel RN RN vc1 Tessie James RN lg3
[2021-08-03 06:52] VITALS: BP 138/94; TEMP 98; O2SAT 100
== END 2021-08-03 06:47 | disposition home or self-care (01) ==
LOC: ER 05:42
DX: S61.211A Laceration without foreign body of left index finger without damage to nail, initial encounter (principal); X58.XXXA Exposure to other specified factors, initial encounter; Y93.G3 Activity, cooking and baking; Z72.0 Tobacco use; Z23 Encounter for immunization
CPT/HCPCS: 90471; 90714; 99284

== ENCOUNTER 2021-09-02 09:04 | Emergency (ER) | payer SELFPAY ==
--- NOTE | 2021-09-02 10:08 | ER ---
Nurse's Notes [facility] Name: Tanisha Hahn Age: 36 yrs Sex: Male : 1985 Arrival Date: 09/02/2021 Time: 09:06 Bed 11 Private MD: Diagnosis: Acute lymphadenitis, unspecified;Nonspecific urethritis Presentation: 09/02 09:43 Chief complaint: Patient states: Knot on right groin area x 1 week, burning with jl7 urination x 3 days, possible STD exposure. Coronavirus screen: At this time, the client does not indicate any symptoms associated with coronavirus-19. Ebola Screen: No symptoms or risks identified at this time. Initial Sepsis Screen: Does the patient meet any 2 criteria? No. Patient's initial sepsis screen is negative. Does the patient have a suspected source of infection? No. Patient's initial sepsis screen is negative. Risk Assessment: Do you want to hurt yourself or someone else? Patient reports no desire to harm self or others. Onset of symptoms was August 26, 2021. Care prior to arrival: None. 09:43 Method Of Arrival: Ambulatory [facility] 09:43 Acuity: JONO 4 jl7 Triage Assessment: 09:47 General: Behavior is calm, cooperative. ha1 09:47 Pain: Complains of pain in pelvis Pain does not radiate. Quality of pain is described ha1 as burning, Pain began one week ago. Is intermittent, Aggravated by urination. 09:47 General: Appears comfortable, Behavior is calm, cooperative. ha1 Historical: - Allergies: 09:44 No Known Allergies; jl7 - Home Meds: 09:44 None [Active]; jl7 - PMHx: 09:44 None; jl7 - PSHx: 09:44 Appendectomy; jl7 - Immunization history:: Adult Immunizations unknown. - Social history:: Smoking status: Patient reports the use of cigarette tobacco products, smokes one pack cigarettes per day. Patient uses street drugs, marijuana. Screenin:47 Abuse screen: Denies threats or abuse. ha1 09:47 Nutritional screening: No deficits noted. Tuberculosis screening: No symptoms or risk ha1 factors identified. 09:47 Fall Risk Fall Risk None identified. ha1 Assessment: 10:29 Reassessment: pt will be discharge after shot time. 15 minutes. ha1 Vital Signs: 09:43 BP 123 / 98; Pulse 77; Resp 18; Temp 98.1; Pulse Ox 99% ; Height 5 ft. 5 in. (165.10 jl7 cm); Pain 0/10; 10:47 BP 130 / 96; Pulse 60; Resp 16; Pulse Ox 100% on R/A; ha1 ED Course: 09:06 Patient arrived in ED. mr 09:44 Triage completed. jl7 09:44 Arm band placed on right wrist. jl7 09:46 Loco Garcia PA is PHCP. jr8 09:46 Jorge Malave MD is Attending Physician. jr8 09:47 Patient has correct armband on for positive identification. Bed in low position. Call ha1 light in reach. Side rails up X 1. 09:49 Grady Kate RN is Primary Nurse. jl7 10:50 Patient did not have IV access during this emergency room visit. ha1 10:54 No provider procedures requiring assistance completed. ha1 Administered Medications: 10:28 Drug: Rocephin (cefTRIAXone) 500 mg Route: IM; Site: left vastus lateralis; ha1 11:06 Follow up: Response: No adverse reaction ha1 10:29 Drug: AZITHromycin 1 grams Route: PO; ha1 10:50 Follow up: Response: No adverse reaction ha1 Medication: 10:50 VIS not applicable for this client. ha1 Outcome: 10:08 Discharge ordered by . jr8 10:49 Discharged to home ambulatory. ha1 10:49 Discharge instructions given to patient, Instructed on discharge instructions, follow up and referral plans. Demonstrated understanding of instructions, follow-up care, medications. 10:50 Condition: stable ha1 11:36 Patient left the ED. jl7 Signatures: Jayna Diego mr Loco Garcia PA PA jr8 Grady Kate RN RN jl7 Ragini Morales RN RN ha1 Corrections: (The following items were deleted from the chart) 10:59 10:51 Abuse screen: Denies threats or abuse. ha1 ha1 10:59 10:00 Fall Risk Gait- Normal/Bed Rest/Wheelchair (0 pts) ha1 ha1 11:05 10:54 General: Appears ha1 ha1
--- NOTE | 2021-09-02 10:09 | EDPHYS ---
Physician Documentation [facility] Name: Tanisha Hahn Age: 36 yrs Sex: Male : 1985 Arrival Date: 09/02/2021 Time: 09:06 Bed 11 Private MD: ED Physician Jorge Malave HPI: 09/02 10:04 This 36 yrs old Black Male presents to ER via Ambulatory with complaints of Knot on jr8 groin. 10:04 Onset: The symptoms/episode began/occurred acutely. Associated signs and symptoms: jr8 Pertinent positives: dysuria. Modifying factors: The patient symptoms are alleviated by nothing, the patient symptoms are aggravated by nothing. The patient has not experienced similar symptoms in the past. The patient has not recently seen a physician. Patient stated that he "for around "with another female and found out that she had a sexually transmitted infection. Now having discharge and burning. Also feels a knot to the right groin.. Historical: - Allergies: 09:44 No Known Allergies; jl7 - Home Meds: 09:44 None [Active]; jl7 - PMHx: 09:44 None; jl7 - PSHx: 09:44 Appendectomy; jl7 - Immunization history:: Adult Immunizations unknown. - Social history:: Smoking status: Patient reports the use of cigarette tobacco products, smokes one pack cigarettes per day. Patient uses street drugs, marijuana. ROS: 10:04 Eyes: Negative for injury, pain, redness, and discharge, ENT: Negative for injury, jr8 pain, and discharge, Neck: Negative for injury, pain, and swelling, Cardiovascular: Negative for chest pain, palpitations, and edema, Respiratory: Negative for shortness of breath, cough, wheezing, and pleuritic chest pain, Abdomen/GI: Negative for abdominal pain, nausea, vomiting, diarrhea, and constipation, Back: Negative for injury and pain, MS/Extremity: Negative for injury and deformity, Skin: Negative for injury, rash, and discoloration, Neuro: Negative for headache, weakness, numbness, tingling, and seizure. 10:04 : Positive for urinary symptoms, burning with urination, penile discharge, Negative for penile pain, testicular pain Exam: 10:04 Constitutional: This is a well developed, well nourished patient who is awake, alert, jr8 and in no acute distress. Cardiovascular: Regular rate and rhythm with a normal S1 and S2. No gallops, murmurs, or rubs. Normal PMI, no JVD. No pulse deficits. Respiratory: Lungs have equal breath sounds bilaterally, clear to auscultation and percussion. No rales, rhonchi or wheezes noted. No increased work of breathing, no retractions or nasal flaring. Abdomen/GI: Soft, non-tender, with normal bowel sounds. No distension or tympany. No guarding or rebound. No evidence of tenderness throughout. Skin: Warm, dry with normal turgor. Normal color with no rashes, no lesions, and no evidence of cellulitis. MS/ Extremity: Pulses equal, no cyanosis. Neurovascular intact. Full, normal range of motion. Neuro: Awake and alert, GCS 15, oriented to person, place, time, and situation. Cranial nerves II-XII grossly intact. Motor strength 5/5 in all extremities. Sensory grossly intact. 10:04 : CVA tenderness, is absent, Right inguinal lymphadenopathy noted with tenderness.. Vital Signs: 09:43 BP 123 / 98; Pulse 77; Resp 18; Temp 98.1; Pulse Ox 99% ; Height 5 ft. 5 in. (165.10 jl7 cm); Pain 0/10; 10:47 BP 130 / 96; Pulse 60; Resp 16; Pulse Ox 100% on R/A; ha1 MDM: 09:47 Patient medically screened. jr8 10:04 Data reviewed: vital signs, nurses notes, lab test result(s). Data interpreted: Pulse jr8 oximetry: on room air is 99 %. Interpretation: normal. Counseling: I had a detailed discussion with the patient and/or guardian regarding: the historical points, exam findings, and any diagnostic results supporting the discharge/admit diagnosis, the need for outpatient follow up, a family practitioner, to return to the emergency department if symptoms worsen or persist or if there are any questions or concerns that arise at home. ED course: Discussed with patient that he needs to abstain for the next couple weeks. Take all antibiotics given. If he starts to have fever, abdominal pain, back pain to come back for further evaluation. Patient good with this and will follow-up and/or come back if needed.. 09/02 10:07 Order name: GC (Polo/Chl) Probe URINE EDMS 09/02 10:25 Order name: Urinalysis; Complete Time: 10:39 EDMS 09/02 09:46 Order name: Urine Dipstick-Ancillary (obtain specimen); Complete Time: 09:50 jl7 09/02 10:41 Order name: Urine Culture EDMS Administered Medications: 10:28 Drug: Rocephin (cefTRIAXone) 500 mg Route: IM; Site: left vastus lateralis; ha1 11:06 Follow up: Response: No adverse reaction ha1 10:29 Drug: AZITHromycin 1 grams Route: PO; ha1 10:50 Follow up: Response: No adverse reaction ha1 Disposition Summary: 09/02/21 10:08 Discharge Ordered Location: Home jr8 Problem: new jr8 Symptoms: have improved jr8 Condition: Stable jr8 Diagnosis - Acute lymphadenitis, unspecified jr8 - Nonspecific urethritis jr8 Followup: jr8 - With: Private Physician - When: 1 week - Reason: Recheck today's complaints, Continuance of care, Re-evaluation by your physician Discharge Instructions: - Discharge Summary Sheet jr8 - Urethritis, Adult jr8 - Lymphadenopathy jr8 Forms: - Medication Reconciliation Form jr8 - Thank You Letter jr8 - Antibiotic Education jr8 - Prescription Opioid Use jr8 Prescriptions: - Doxycycline Monohydrate 100 mg Oral Tablet - take 1 tablet by ORAL route every 12 hours for 10 days; 20 tablet; Refills: 0, jr8 Product Selection Permitted Signatures: Dispatcher [employer] EDMS Loco Garcia PA PA jr8 Grady Kate RN RN jl7 Ragini Morales RN RN 1 Corrections: (The following items were deleted from the chart) 10:07 09:54 GC (Gonorr/Clamydia) Probe+R.LAB.BRZ ordered. EDMS EDMS 10:56 09:46 UA MICROSCOPIC+U.LAB.BRZ ordered. EDMS EDMS 10:57 09:50 URINALYSIS+U.LAB.BRZ ordered. EDMS EDMS
[2021-09-02] MEDS ORDERED: AZITHROMYCIN 250 MG TAB ONE (10:16)
[2021-09-02] MEDS ORDERED: LIDOCAINE 2% MPF 5 ML VIAL ONE (10:19)
[2021-09-02] MEDS ORDERED: CEFTRIAXONE 500 MG/VIAL ONE (10:19)
[2021-09-02] MEDS ORDERED: LIDOCAINE 1% MPF 2 ML AMPULE ONE (10:21)
[2021-09-02 10:24] LABS: Urine Bilirubin Negative (Negative); Urine Blood 2+ (Negative); Urine Color Yellow (Yellow); Urine Glucose Negative (Negative); Urine Protein 2+ (Negative)
[2021-09-02 10:32] LABS: Urine Clarity Cloudy (Clear)
[2021-09-02 10:36] LABS: Urine Bacteria 20-50 /HPF (<20)
[2021-09-02 10:37] LABS: Urine Mucus 1+ /HPF (None Seen)
[2021-09-02 11:48] VITALS: TEMP 98.1
[2021-09-02 11:50] VITALS: BP 130/96; O2SAT 100
[2021-09-06 08:41] LABS: C.trachomatis RNA,TMA Not Detected (Not Detected)
== END 2021-09-02 11:36 | disposition home or self-care (01) ==
LOC: ER 09:04
DX: L04.1 Acute lymphadenitis of trunk (principal); N34.1 Nonspecific urethritis; F17.210 Nicotine dependence, cigarettes, uncomplicated
CPT/HCPCS: 81001; 87086; 87088; 87490; 87590; 96372; 99283; J0696

== ENCOUNTER 2022-12-06 09:35 | Emergency (ER) | payer SELFPAY ==
[2022-12-06] MEDS ORDERED: METOCLOPRAMIDE 10 MG/2mL INJ ONE (10:30)
[2022-12-06] MEDS ORDERED: DIPHENHYDRAMINE 50 MG/ML VIAL ONE (10:30)
[2022-12-06] MEDS ORDERED: NA CHLORIDE 0.9% 1,000 ML ONE (10:30)
[2022-12-06 10:37] LABS: Absolute Lymphocytes (CBC) 1.1 K/uL (0.7-4.9); Hematocrit 41.1 % (39.6-49.0); Lymphocytes % 15.1 % (15.3-44.8); MCV 83.3 fL (80-100); MPV 6.5 fL (7.6-11.3); Platelets 364 thou/uL (152-406); RBC Red Blood Cell Count 4.93 M/uL (4.33-5.43)
--- NOTE | 2022-12-06 10:55 | RAD REPORT ---
EXAM DESCRIPTION: Kathy Single View12/06/2022 10:38 am CLINICAL HISTORY: Chest pain COMPARISON: none FINDINGS: The lungs appear clear of acute infiltrate. The heart is normal size IMPRESSION: No acute abnormalities displayed
[2022-12-06 10:56] LABS: Potassium 4.4 mEq/L (3.5-5.1); Troponin High Sensitivity 4.5 pg/mL (<58.9)
--- NOTE | 2022-12-06 11:43 | EDPHYS ---
Physician Documentation [facility] Name: Tanisha Hahn Age: 37 yrs Sex: Male : 1985 Arrival Date: 12/06/2022 Time: 09:35 Bed 13 Private MD: ED Physician Mirza Hi HPI: 12/06 10:13 This 37 yrs old Black Male presents to ER via Ambulatory with complaints of Chest Pain, ec2 Back Pain, Sore Throat. 10:13 Patient arrives today due to concern for chest pain with associated back pain and sore ec2 throat. Patient reports he been having symptoms for approximately 3 days. Reports no specific exertional component to this. Denies any specific medical problems. Reports that he has had some decreased appetite, no vomiting, no diarrhea. States that he also has a headache as well.. Historical: - Allergies: 09:48 No Known Allergies; hb - PSHx: 09:48 Appendectomy; hb - Immunization history:: Adult Immunizations up to date. - Social history:: Smoking status: Patient denies any tobacco usage or history of. ROS: 10:14 Constitutional: as per hpi ec2 Exam: 10:14 Constitutional: GEN: NAD Head: atraumatic Eyes: EOMI Ears: External ears are normal. ec2 Oropharynx: Clear, no exudates present, minimal erythema appreciated., No cervical lymphadenopathy appreciated. CV: regular rate LUNGS: no respiratory distress, no wheezes, no rales, no rhonchi ABD: non-distended, soft, nontender, no guarding, nonrigid SKIN: no evidence of rashes MSK: no evidence of trauma NEURO: moves all extremities equally Vital Signs: 09:46 BP 137 / 93; Pulse 89; Resp 16; Temp 98.4; Pulse Ox 100% on R/A; Weight 72.57 kg; hb Height 5 ft. 5 in. ; Pain 2/10; 09:59 BP 134 / 85; Pulse 80; Resp 18; Pulse Ox 100% on R/A; Pain 8/10; ld1 10:28 BP 133 / 95; Pulse 76; Resp 18; Pulse Ox 100% on R/A; Pain 9/10; ld1 11:51 BP 134 / 79; Pulse 82; Resp 18; Pulse Ox 100% on R/A; Pain 2/10; ld1 09:46 Body Mass Index 26.63 (72.57 kg, 165.1 cm) hb 09:46 Pain Scale: Adult hb 09:59 Pain Scale: Adult ld1 10:28 Pain Scale: Adult ld1 11:51 Pain Scale: Adult ld1 MDM: 09:42 Patient medically screened. ec2 10:08 ED course: EKG independently reviewed and interpreted by me, shows normal sinus rhythm, ec2 rate of 87, no acute ST segment elevations, nonconcerning intervals.. 10:14 ED course: Patient arrives today due to concern for chest pain with associated body ec2 pain and headaches. Examination remarkable for well-appearing nontoxic dividual is otherwise in no acute distress. Currently considered process such as viral infection, strep pharyngitis, low suspicion for ACS, low suspicion for intracranial process. We will treat the patient's notable crystalloid, Reglan as well as Benadryl.. 11:06 ED course: CBC is reassuring without leukocytosis or anemia, metabolic profile with ec2 improved electrolytes and renal function, troponin within normal ranges. Chest x-ray independently reviewed and interpreted by me, shows no acute thoracic process. . 11:41 ED course: On reassessment patient with improving symptoms. Will discharge home, ec2 prescribed Reglan, return precautions given. Low suspicion for ACS or acute intracranial process, low suspicion for emergent bacterial process. Return precautions given.. 11:44 Data reviewed: vital signs. ec2 12/06 10:02 Order name: Basic Metabolic Panel; Complete Time: 11:06 ec2 12/06 10:02 Order name: CBC with Diff; Complete Time: 11:06 ec2 12/06 10:02 Order name: Troponin HS; Complete Time: 11:06 ec2 12/06 10:14 Order name: Strep ec2 12/06 11:42 Order name: Throat Culture EDIN 12/06 10:02 Order name: XRAY Chest (1 view); Complete Time: 11:06 ec2 12/06 10:02 Order name: EKG; Complete Time: 10:02 ec2 12/06 10:02 Order name: Cardiac monitoring; Complete Time: 10:03 ec2 12/06 10:02 Order name: EKG - Nurse/Tech; Complete Time: 10:15 ec2 12/06 10:02 Order name: IV Saline Lock; Complete Time: 10:27 ec2 12/06 10:02 Order name: Labs collected and sent; Complete Time: ec2 12/06 10:02 Order name: O2 Per Protocol; Complete Time: ec2 12/06 10:02 Order name: O2 Sat Monitoring; Complete Time: : ec2 Administered Medications: 10 Drug: NS 0.9% IV 1000 ml IV at 1 bolus Per protocol; 1000 mL bolus Route: IV; Rate: 1 ld1 bolus; Site: right antecubital; Drug: metoCLOPramide IVP 10 mg IVP once; over 1 to 2 minutes Route: IVP; Site: right ld1 antecubital; Drug: diphenhydrAMINE IVP 25 mg IVP once Route: IVP; Site: right antecubital; ld1 Disposition Summary: 12/06/22 11:42 Discharge Ordered Notes: Location: Home ec2 Condition: Stable ec2 Diagnosis - Headache ec2 Discharge Instructions: - Discharge Summary Sheet ec2 - Migraine Headache ec2 Forms: - Work release form ld1 - Medication Reconciliation Form ec2 - Thank You Letter ec2 - Antibiotic Education ec2 - Prescription Opioid Use ec2 - Patient Portal Instructions ec2 - Leadership Thank You Letter ec2 Signatures: Dispatcher [employer] Marian Purvis RN RN Ruby Marie RN RN ld1 Mirza Hi MD MD ec2
--- NOTE | 2022-12-06 11:43 | ER ---
Nurse's Notes [facility] Name: Tanisha Hahn Age: 37 yrs Sex: Male : 1985 Arrival Date: 12/06/2022 Time: 09:35 Bed 13 Private MD: Diagnosis: Headache Presentation: 12/06 09:46 Chief complaint: Intermittent sharp left sided chest pain x 2 hours, right flank pain hb and bilateral hand cramping x 2 days. Coronavirus screen: At this time, the client does not indicate any symptoms associated with coronavirus-19. Ebola Screen: No symptoms or risks identified at this time. Initial Sepsis Screen: Does the patient meet any 2 criteria? No. Patient's initial sepsis screen is negative. Does the patient have a suspected source of infection? No. Patient's initial sepsis screen is negative. Risk Assessment: Do you want to hurt yourself or someone else? Patient reports no desire to harm self or others. Onset of symptoms was December 04, 2022. 09:46 Method Of Arrival: Ambulatory hb 09:46 Acuity: JONO 3 hb Historical: - Allergies: 09:48 No Known Allergies; hb - PSHx: 09:48 Appendectomy; hb - Immunization history:: Adult Immunizations up to date. - Social history:: Smoking status: Patient denies any tobacco usage or history of. Screenin:28 [facility] ED Fall Risk Assessment (Adult) History of falling in the last 3 months, ld1 including since admission No falls in past 3 months (0 pts). Abuse screen: Denies threats or abuse. Denies injuries from another. Nutritional screening: No deficits noted. Tuberculosis screening: No symptoms or risk factors identified. Assessment: 10:28 General: Appears in no apparent distress. uncomfortable, Behavior is cooperative, ld1 anxious. Pain: Complains of pain in face Pain does not radiate. Pain currently is 9 out of 10 on a pain scale. Quality of pain is described as throbbing, Pain began suddenly, Is continuous. Neuro: Level of Consciousness is awake, alert, obeys commands, Oriented to person, place, time, situation. Cardiovascular: Capillary refill < 3 seconds Patient's skin is warm and dry. Rhythm is regular. Respiratory: Airway is patent Respiratory effort is even, unlabored. GI: Abdomen is flat, non-distended. : No signs and/or symptoms were reported regarding the genitourinary system. EENT: No signs and/or symptoms were reported regarding the EENT system. Derm: No signs and/or symptoms reported regarding the dermatologic system. Musculoskeletal: No signs and/or symptoms reported regarding the musculoskeletal system. 11:16 Reassessment: Patient appears in no apparent distress at this time. Patient and/or tm6 family updated on plan of care and expected duration. Pain level reassessed. Vital Signs: 09:46 BP 137 / 93; Pulse 89; Resp 16; Temp 98.4; Pulse Ox 100% on R/A; Weight 72.57 kg; hb Height 5 ft. 5 in. ; Pain 2/10; 09:59 BP 134 / 85; Pulse 80; Resp 18; Pulse Ox 100% on R/A; Pain 8/10; ld1 10:28 BP 133 / 95; Pulse 76; Resp 18; Pulse Ox 100% on R/A; Pain 9/10; ld1 11:51 BP 134 / 79; Pulse 82; Resp 18; Pulse Ox 100% on R/A; Pain 2/10; ld1 09:46 Body Mass Index 26.63 (72.57 kg, 165.1 cm) hb 09:46 Pain Scale: Adult hb 09:59 Pain Scale: Adult ld1 10:28 Pain Scale: Adult ld1 11:51 Pain Scale: Adult ld1 ED Course: 09:39 Patient arrived in ED. mg5 09:42 Mirza Hi MD is Attending Physician. ec2 09:48 Triage completed. hb 09:48 Arm band placed on. hb 09:56 Ruby Marie, MINGO is Primary Nurse. ld1 10:28 Patient has correct armband on for positive identification. Placed in gown. Bed in low ld1 position. Call light in reach. Side rails up X2. satellite project site monitor on. Pulse ox on. NIBP on. Door closed. Noise minimized. Warm blanket given. 10:28 No provider procedures requiring assistance completed. Inserted saline lock: 20 gauge ld1 in right antecubital area, using aseptic technique. Blood collected. Patient maintains SpO2 saturation greater than 95% on room air. 10:40 XRAY Chest (1 view) In Process Unspecified. EDMS 11:15 Warm blanket given. tm6 11:51 IV discontinued, intact, bleeding controlled, No redness/swelling at site. ld1 Administered Medications: : Drug: NS 0.9% IV 1000 ml IV at 1 bolus Per protocol; 1000 mL bolus Route: IV; Rate: 1 ld1 bolus; Site: right antecubital; : Drug: metoCLOPramide IVP 10 mg IVP once; over 1 to 2 minutes Route: IVP; Site: right ld1 antecubital; : Drug: diphenhydrAMINE IVP 25 mg IVP once Route: IVP; Site: right antecubital; ld1 Medication: 10:28 VIS not applicable for this client. ld1 Outcome: 11:42 Discharge ordered by . ec2 11:51 Discharged to home ambulatory, ld1 11:51 Condition: stable 11:51 Discharge instructions given to patient, Instructed on discharge instructions, follow up and referral plans. Demonstrated understanding of instructions, follow-up care, medications, Prescriptions given X 1, 11:52 Patient left the ED. ld1 Signatures: Dispatcher [employer] EDMarian Contreras RN RN Ruby Marie RN RN ld1 Gloria Orr mg5 Mirza Hi MD MD ec2 Cely Lyons RN RN tm6
[2022-12-06 11:57] VITALS: TEMP 98.4; O2SAT 100
[2022-12-06 12:02] VITALS: BP 134/79
--- NOTE | 2022-12-08 07:54 | EKG ---
Test Date: 2022-12-06 Test Time: 09:47:29 Program Eligibility Specialist: TAM MEASUREMENT RESULTS: Intervals: Rate: 87 [place]: 142 QRSD: 72 QT: 342 QTc: 411 [place]: P: 32 [place]: 142 QRS: 66 T: 54 INTERPRETIVE STATEMENTS: Normal sinus rhythm Normal ECG No previous ECG available for comparison Electronically Signed On 12-08-22 07:51:21 CDT by Modesto Deleon
== END 2022-12-06 11:52 | disposition home or self-care (01) ==
LOC: ER 09:35
DX: R51.9 Headache, unspecified (principal)
CPT/HCPCS: 36415; 71045; 80048; 84484; 85025; 87070; 87081; 93005; 96374; 96375; 99285; J1200; J2765; J7030

== ENCOUNTER → 2023-03-23 | Emergency (ER) | payer SELFPAY ==
[~2023-03-23] MED LIST: ACETAMINOPHEN 500 MG TAB ONE; IBUPROFEN 200 MG TAB PO ONE; IBUPROFEN 400 MG TAB ONE
[2023-03-23 14:15] LABS: SARS-CoV-2 Antigen Rapid Res Negative (Negative)
--- NOTE | 2023-03-23 15:28 | EDPHYS ---
Physician Documentation [facility] Name: Tanisha aHhn Age: 38 yrs Sex: Male : 1985 Arrival Date: 03/23/2023 Time: 13:19 Bed 15 Private MD: ED Physician Irvin Marie HPI: 03/23 13:53 This 38 yrs old Black Male presents to ER via Ambulatory with complaints of Dizziness, ms3 Pain All Over. 13:53 38-year-old male with no past medical history presents to the emergency department for ms3 4 days of myalgias, cough, fevers, chills. Patient states he is in severe discomfort. Patient denies sick contacts. Patient denies any alleviating or inciting factors. Historical: - Allergies: 13:29 No Known Allergies; ph - PSHx: 13:29 Appendectomy; ph - Immunization history:: Adult Immunizations unknown. - Social history:: Smoking status: Patient reports the use of cigarette tobacco products, smokes one pack cigarettes per day. ROS: 13:53 ENT: Negative for injury, pain, and discharge, Cardiovascular: Negative for chest pain, ms3 and palpitations. Respiratory: Negative for shortness of breath, cough, wheezing, and pleuritic chest pain, Abdomen/GI: Negative for abdominal pain, nausea, vomiting, diarrhea, and constipation, MS/Extremity: Negative for injury and deformity, Skin: Negative for injury, rash, and discoloration, 13:53 Constitutional: Positive for body aches, chills, fever, Exam: 13:53 Constitutional: This is a well developed, well nourished patient who is awake, alert, ms3 and in no acute distress. Head/Face: Normocephalic, atraumatic. Neck: Trachea midline, no cervical lymphadenopathy. Supple, full range of motion without nuchal rigidity, or vertebral point tenderness. No Meningismus. Chest/axilla: Normal chest wall appearance and motion. Nontender with no deformity. Cardiovascular: Regular rate and rhythm with a normal S1 and S2. No gallops, murmurs, or rubs. Normal PMI, no JVD. No pulse deficits. Respiratory: Lungs have equal breath sounds bilaterally, clear to auscultation and percussion. No rales, rhonchi or wheezes noted. No increased work of breathing, no retractions or nasal flaring. Abdomen/GI: Soft, non-tender, with normal bowel sounds. No distension or tympany. No guarding or rebound. No evidence of tenderness throughout. Skin: Warm, dry with normal turgor. Normal color with no rashes, no lesions, and no evidence of cellulitis. MS/ Extremity: Pulses equal, no cyanosis. Neurovascular intact. Full, normal range of motion. Vital Signs: 13:27 BP 157 / 84; Pulse 87; Resp 18; Temp 99.4; Pulse Ox 100% on R/A; Weight 72.57 kg; ph Height 5 ft. 5 in. ; 13:34 BP 157 / 84; Pulse 85; Resp 16; Pulse Ox 100% ; tl4 13:55 BP 136 / 94; Pulse 105; Resp 16; Pulse Ox 100% ; tl4 14:15 BP 143 / 95; Pulse 81; Resp 18; Pulse Ox 100% on R/A; db 14:30 BP 144 / 76; Pulse 82; Resp 18; Pulse Ox 100% on R/A; db 13:27 Body Mass Index 26.63 (72.57 kg, 165.1 cm) ph [place] Coma Score: 13:34 Eye Response: spontaneous(4). Motor Response: obeys commands(6). Verbal Response: tl4 oriented(5). Total: 15. MDM: 13:45 Patient medically screened. ms3 13:53 Differential diagnosis: Flu versus COVID versus strep. ms3 15:58 Data reviewed: vital signs, nurses notes, lab test result(s), and as a result, I will ms3 discharge patient. I considered the following discharge prescriptions or medication management in the emergency department Medications were administered in the Emergency Department. See MAR. Counseling: I had a detailed discussion with the patient and/or guardian regarding the historical points, exam findings, and any diagnostic results supporting the discharge/admit diagnosis, lab results, the need for outpatient follow up, to return to the emergency department if symptoms worsen or persist or if there are any questions or concerns that arise at home. Special discussion: I discussed with the patient/guardian in detail that at this point there is no indication for admission to the hospital. It is understood, however, that if the symptoms persist or worsen the patient needs to return immediately for re-evaluation. ED course: Discussed labs and treatment plan with patient. Patient understands and agrees with plan. All questions were answered. Return precautions discussed include worsening symptoms, or any other concerns. On reevaluation patient is improved, alert and orient x 4, no apparent distress, nontoxic-appearing, ambulatory in emergency room, speaking full sentences. 03/23 13:45 Order name: SARS RAPID; Complete Time: 14:18 ms3 03/23 13:45 Order name: Flu; Complete Time: 14:47 ms3 03/23 13:45 Order name: Strep ms3 03/23 14:20 Order name: Throat Culture EDMS Administered Medications: 13:54 Drug: Ibuprofen PO 600 mg PO once Route: PO; tl4 15:32 Follow up: Response: No adverse reaction tl4 13:54 Drug: Acetaminophen PO 1000 mg PO once Route: PO; tl4 15:32 Follow up: Response: No adverse reaction tl4 Disposition Summary: 03/23/23 15:27 Discharge Ordered Notes: Location: Home ms3 Condition: Stable ms3 Diagnosis - Myalgia ms3 Followup: ms3 - With: Derek Guerrero DO - When: 2 - 3 days - Reason: Recheck today's complaints Discharge Instructions: - Discharge Summary Sheet ms3 - Musculoskeletal Pain ms3 Forms: - Work release form ap3 - Medication Reconciliation Form ms3 - Thank You Letter ms3 - Antibiotic Education ms3 - Prescription Opioid Use ms3 - Patient Portal Instructions ms3 - Leadership Thank You Letter ms3 Prescriptions: - Ibuprofen 600 mg Oral Tablet - take 1 tablet ORAL route every 6 hours As needed take with food; 30 tablet; ms3 Refills: 0, Product Selection Permitted Signatures: Dispatcher [employer] Kimberlyn Brand, RN RN Irvin Marie DO DO ms3 Trey Thomas RN RN tl4
--- NOTE | 2023-03-23 15:28 | ER ---
Nurse's Notes [facility] Name: Tanisha Hahn Age: 38 yrs Sex: Male : 1985 Arrival Date: 03/23/2023 Time: 13:19 Bed 15 Private MD: Diagnosis: Myalgia Presentation: 03/23 13:27 Chief complaint: Patient states: Chills, headache, body aches, dizziness, loss of smell ph and decreased ROM in L shoulder since Wednesday. Coronavirus screen: Vaccine status: Patient reports being unvaccinated. Ebola Screen: No symptoms or risks identified at this time. Initial Sepsis Screen: Does the patient meet any 2 criteria? No. Patient's initial sepsis screen is negative. Does the patient have a suspected source of infection? No. Patient's initial sepsis screen is negative. Risk Assessment: Do you want to hurt yourself or someone else? Patient reports no desire to harm self or others. Onset of symptoms was March 23, 2023. 13:27 Method Of Arrival: Ambulatory ph 13:27 Acuity: JONO 3 ph Triage Assessment: 13:32 General: Appears uncomfortable, Behavior is calm, cooperative. Pain: Complains of pain tl4 in generalized body aches. EENT: Reports difficulty swallowing nasal congestion nasal discharge pain in headache. Neuro: Reports dizziness, Denies weakness blurred vision. Cardiovascular: No deficits noted. Denies chest pain, diaphoresis, fatigue, lightheadedness, nausea, palpitations. Respiratory: Reports cough that is Denies shortness of breath. GI: No deficits noted. No signs and/or symptoms were reported involving the gastrointestinal system. : No deficits noted. No signs and/or symptoms were reported regarding the genitourinary system. Derm: No deficits noted. No signs and/or symptoms reported regarding the dermatologic system. Musculoskeletal: No deficits noted. No signs and/or symptoms reported regarding the musculoskeletal system. Historical: - Allergies: 13:29 No Known Allergies; ph - PSHx: 13:29 Appendectomy; ph - Immunization history:: Adult Immunizations unknown. - Social history:: Smoking status: Patient reports the use of cigarette tobacco products, smokes one pack cigarettes per day. Screenin:36 [facility] ED Fall Risk Assessment (Adult) History of falling in the last 3 months, tl4 including since admission No falls in past 3 months (0 pts) Confusion or Disorientation No (0 pts) Intoxicated or Sedated No (0 pts) Impaired Gait No (0 pts) Mobility Assist Device Used No (0 pt) Altered Elimination No (0 pt) Score/Fall Risk Level 0 - 2 = Low Risk Oriented to surroundings, Maintained a safe environment, Educated pt \T\ family on fall prevention, incl call for assistance when getting out of bed, Assessed \T\ reinforced patient's understanding of fall precautions, Provided non-skid footwear, Hourly rounding (assess needs \T\ fall precautionary measures) done, Used ambulatory aids as needed (educated on \T\ assisted with), Used gait belt as appropriate. Abuse screen: Denies threats or abuse. Denies injuries from another. Nutritional screening: No deficits noted. Tuberculosis screening: No symptoms or risk factors identified. Assessment: 13:37 Reassessment: No changes from previously documented assessment. Patient and/or family tl4 updated on plan of care and expected duration. Pain level reassessed. Patient is alert, oriented x 3, equal unlabored respirations, skin warm/dry/pink. Vital Signs: 13:27 BP 157 / 84; Pulse 87; Resp 18; Temp 99.4; Pulse Ox 100% on R/A; Weight 72.57 kg; ph Height 5 ft. 5 in. ; 13:34 BP 157 / 84; Pulse 85; Resp 16; Pulse Ox 100% ; tl4 13:55 BP 136 / 94; Pulse 105; Resp 16; Pulse Ox 100% ; tl4 14:15 BP 143 / 95; Pulse 81; Resp 18; Pulse Ox 100% on R/A; db 14:30 BP 144 / 76; Pulse 82; Resp 18; Pulse Ox 100% on R/A; db 13:27 Body Mass Index 26.63 (72.57 kg, 165.1 cm) ph Yoandy Coma Score: 13:34 Eye Response: spontaneous(4). Motor Response: obeys commands(6). Verbal Response: tl4 oriented(5). Total: 15. ED Course: 13:21 Patient arrived in ED. kj1 13:27 Irvin Marie DO is Attending Physician. ms3 13:29 Triage completed. ph 13:29 Arm band placed on Patient placed in an exam room, on a stretcher. ph 13:36 Patient has correct armband on for positive identification. Placed in gown. Bed in low tl4 position. Call light in reach. Side rails up X 1. Provided Education on: ed process. Client placed on continuous cardiac and pulse oximetry monitoring. NIBP monitoring applied. Door closed. Noise minimized. Lights dimmed. Moved to private room. Warm blanket given. 13:37 No provider procedures requiring assistance completed. tl4 13:48 Strep Sent. tl4 13:48 Flu Sent. tl4 13:49 SARS RAPID Sent. tl4 14:41 Ashley Bonilla, RN is Primary Nurse. db 15:27 Derek Guerrero DO is Referral Physician. ms3 15:49 Patient did not have IV access during this emergency room visit. ap3 Administered Medications: 13:54 Drug: Ibuprofen PO 600 mg PO once Route: PO; tl4 15:32 Follow up: Response: No adverse reaction tl4 13:54 Drug: Acetaminophen PO 1000 mg PO once Route: PO; tl4 15:32 Follow up: Response: No adverse reaction tl4 Medication: 13:36 VIS not applicable for this client. tl4 Outcome: 15:27 Discharge ordered by . ms3 15:49 Discharged to home ambulatory, ap3 15:49 Condition: good 15:49 Discharge instructions given to patient, Instructed on discharge instructions, follow up and referral plans. medication usage, Demonstrated understanding of instructions, follow-up care, medications, Prescriptions given X 1, 15:49 Patient left the ED. ap3 Signatures: Kimberlyn Ritter RN MINGO Elvie Gilliam RN RN ap3 Germaine Lott1 Irvin Marie DO DO ms3 Ashley Bonilla, MINGO AGUILA Trey Thomas RN RN tl4
[2023-03-23 16:01] VITALS: TEMP 99.4; O2SAT 100
[2023-03-23 16:22] VITALS: BP 144/76
== END ==
LOC: ER 13:19
DX: M79.10 Myalgia, unspecified site (principal); R50.9 Fever, unspecified; R42 Dizziness and giddiness; Z11.52 Encounter for screening for COVID-19
CPT/HCPCS: 36415; 87070; 87081; 87804; 87811